=== PATIENT | male | born 1990 | race Caucasian/White ===

== ENCOUNTER 2018-10-31 23:23 | Emergency (ER) | payer SELFPAY ==
[~2018-10-31] VITALS: Ht 177.8 cm; Wt 77.1 kg
[2018-10-31 23:25] VITALS: BP_SYST 162
[2018-11-01 00:23] VITALS: BP_SYST 162
== END 2018-11-01 00:25 | disposition home or self-care (01) ==
LOC: SED 23:23
DX: R07.89 Other chest pain (principal); F17.210 Nicotine dependence, cigarettes, uncomplicated; R03.0 Elevated blood-pressure reading, without diagnosis of hypertension
CPT/HCPCS: 71045; 93005; 99283

== ENCOUNTER 2024-05-13 01:06 | Emergency (ER) | payer MEDICAID ==
[~2024-05-13] VITALS: Ht 175.3 cm; Wt 62.1 kg
[2024-05-13 01:30] VITALS: BP_SYST 115; PULSE 111; RESP 18; TEMP 98.1; O2SAT 100
[2024-05-13 03:32] LABS: BASOPHILS % (AUTO) 0.7 % (0.0-2.0); EOSINOPHILS # (AUTO) 0.2 K/uL (0.0-0.4); EOSINOPHILS % (AUTO) 3.2 % (0.0-4.0); HEMATOCRIT 36.6 % (36-54); LYMPHOCYTES # (AUTO) 2.5 K/uL (1.0-5.5); LYMPHOCYTES % (AUTO) 45.5 % (20.5-51.5); MEAN CORPUSCULAR HEMOGLOBIN 28 pg (27-31); MEAN CORPUSCULAR HGB CONC 33 % (32-36); MEAN CORPUSCULAR VOLUME 86 fL (79.0-98.0); MONOCYTES # (AUTO) 0.4 K/uL (0.0-1.0); MONOCYTES % (AUTO) 7.8 % (1.7-9.3); NEUTROPHILS # (AUTO) 2.3 K/uL (1.8-7.7); NEUTROPHILS % (AUTO) 42.8 % (40.0-70.0); PLATELET COUNT (AUTO) 399 K/uL (130-430); RED BLOOD CELL COUNT(AUTO) 4.26 MIL/uL (4.2-6.2); RED CELL DISTRIBUTION WIDTH 14.7 % (9.0-15.0); WHITE BLOOD COUNT (AUTO) 5.5 K/uL (4.8-10.8)
[2024-05-13 03:34] LABS: ALBUMIN 2.1 g/dL (3.4-4.8); BILIRUBIN,DIRECT 0.1 mg/dL (0.0-0.3); CALCIUM 8.4 mg/dL (8.4-11.0); CREATININE 0.92 mg/dL (0.55-1.30); POTASSIUM 3.4 mmol/L (3.5-5.1); TOTAL BILIRUBIN 0.2 mg/dL (0.0-1.0); TOTAL PROTEIN, SERUM 5.8 g/dL (6.4-8.3)
[2024-05-13 03:41] LABS: BILIRUBIN,URINE NEGATIVE (NEGATIVE); BLOOD, URINE 2+ (NEGATIVE); COLOR,URINE YELLOW (YELLOW); GLUCOSE,URINE NEGATIVE (NEGATIVE); KETONES,URINE NEGATIVE (NEGATIVE); LEUKOCYTE ESTERASE ,URINE NEGATIVE (NEGATIVE); NITRITE, URINE NEGATIVE (NEGATIVE); PROTEIN URINE NEGATIVE (NEGATIVE); UROBILINOGEN,URINE 0.2 (0.2-1.0)
[2024-05-13 03:44] LABS: CLARITY/URINE HAZY (CLEAR)
[2024-05-13 03:45] LABS: RBC,URINE 80-100 /HPF (0-3); WBC,URINE 0-3 /HPF (0-3)
[2024-05-13 03:46] LABS: BACTERIA,URINE None Seen /HPF (None Seen)
[2024-05-13 04:21] LABS: METHAMPHETAMINES SCREEN,URINE POSITIVE (NEG <=500); URINE AMPHETAMINE POSITIVE (NEG <=500)
[2024-05-13 04:22] LABS: BARBITURATE, URINE NEGATIVE (NEG <=200); BENZODIAZEPINE, URINE NEGATIVE (NEG <=150); CANNABINOID, URINE NEGATIVE (NEG <=50); COCAINE, URINE NEGATIVE (NEG <=150); OPIATE, URINE NEGATIVE (NEG <=100); PHENCYCLIDINE SCREEN,URINE NEGATIVE (NEG <=25); UR TRICYCLIC ANTIDEPRESSANTS NEGATIVE (NEG <=300); URINE METHADONE NEGATIVE (NEG <=200); URINE OXYCODONE SCREEN NEGATIVE (NEG <=100)
[2024-05-13] MEDS ORDERED: ACETAMINOPHEN 325 MG TABLET PO PRN ×2 (06:45→08:45)
[2024-05-13] MEDS ORDERED: MORPHINE 2 MG/ML INJ. SYRINGE IVP PRN (06:45)
[2024-05-13] MEDS ORDERED: ONDANSETRON HCL 4 MG/2 ML VIAL IVP PRN (06:45)
[2024-05-13] MEDS ORDERED: HYDROcodone/ACETAMIN 5-325 MG TAB (NORCO/ VICODIN) PO PRN (06:45)
[2024-05-13] MEDS ORDERED: LORazepam 2 MG/ML VIAL IVP PRN (06:45)
[2024-05-13 07:59] VITALS: BP_SYST 112; PULSE 95; RESP 17; TEMP 98; O2SAT 98
[2024-05-13] MEDS: ENOXAPARIN SODIUM 30 MG/0.3 ML SYRINGE SUBCUT SCH (09:00)
== END 2024-05-13 09:30 | disposition admitted as inpatient to this hospital (09) ==
LOC: SED 01:06 → SMU 06:40 → UNDOADMIN 06:40 → STU 08:46 → SMU 08:46 → STU 09:30 → UNDODISIN 11:00
DX: I88.0 Nonspecific mesenteric lymphadenitis (principal); R60.0 Localized edema; R31.9 Hematuria, unspecified
CPT/HCPCS: 36415; 80048; 80076; 80307; 81000; 81001; 81015; 85025; 85379; 93005; 99285